=== PATIENT | female | born 1985 | race Caucasian/White ===

== ENCOUNTER 2019-04-16 21:32 | Emergency (ER) | payer OTHER, SELFPAY ==
--- NOTE | 2019-04-16 | DI.RAD.S_ITS ---
PROCEDURE: XR WRIST LT MIN 3V INDICATIONS: FALL TECHNIQUE: 3 views of the wrist were acquired. COMPARISON: None. FINDINGS: Bones: There is a comminuted distal left radial fracture with fracture line lucency extending to the articular surface of the radiocarpal joint. There is dorsal angulation of the distal fracture fragments. Visualized portions of the ulna appear intact. No suspicious bony lesions. Scaphoid view: Scapholunate interval is maintained. Soft tissues: No suspicious soft tissue calcifications. Soft tissue swelling of the left breast. IMPRESSION: Comminuted, displaced distal left radial fracture with likely intra-articular extension. Dictated by: Justin Coombs M.D. on 04/17/2019 at 9:05 Approved by: Justin Coombs M.D. on 04/17/2019 at 9:07
[2019-04-16 21:33] VITALS: BP 121/77; PULSE 73; RESP 15; TEMP 37.3; O2SAT 97; BMI 25.8
--- NOTE | 2019-04-16 21:44 | DI.RAD.S_ITS ---
PROCEDURE: XR FOREARM RT 2V INDICATIONS: left forearm/wrist injury TECHNIQUE: 2 views of the forearm were acquired. COMPARISON: None. FINDINGS: Bones: Comminuted, displaced distal left radial fracture with intra-articular extension. There is overlying soft tissue edema. No definite fracture noted in the ulna. No suspicious bony lesions. Soft tissues: No suspicious soft tissue calcifications or masses. IMPRESSION: Comminuted intra-articular distal left radial fracture. Dictated by: Justin Coombs M.D. on 04/17/2019 at 9:03 Approved by: Justin Coombs M.D. on 04/17/2019 at 9:05
[2019-04-17] VITALS (8 sets, daily range): BP systolic 110–128; BP diastolic 65–79; PULSE 65–78; RESP 14–22; O2SAT 94–100
--- NOTE | 2019-04-17 | DI.RAD.S_ITS ---
PROCEDURE: XR WRIST LT 2V INDICATIONS: POST REDUCTION TECHNIQUE: 2 views of the wrist were acquired. COMPARISON: Radiographs from earlier same day. FINDINGS: Bones: Status post interval casting of comminuted distal radial fracture in improved alignment. No suspicious bony lesions. Soft tissues: No suspicious soft tissue calcifications. IMPRESSION: Status post interval closed reduction of known comminuted distal left radial fracture in improved alignment. Dictated by: Justin Coombs M.D. on 04/17/2019 at 9:07 Approved by: Justin Coombs M.D. on 04/17/2019 at 9:09
[2019-04-17] MEDS: PROPOFOL 200 MG/20 ML VIAL 180 MG IV (01:37)
--- NOTE | 2019-04-17 01:42 | ED_ITS ---
HPI - Extremity Injury (Upper) General Chief Complaint: Extremity Injury, Upper Stated Complaint: GLF,Xray on [place],Dx with Fracture. Time Seen by Provider: 04/16/19 22:31 Source: patient Mode of arrival: ambulatory Limitations: no limitations History of Present Illness HPI narrative: The patient is in [place], she and her run or [place] vacationing. She slipped any stream about 5:00 p.m., falling on her outstretched left hand. She was seen locally diagnosed with a left wrist fracture. She arrives in a sling. She denies head, neck, or back pain. She has no extremity or torso injury other than the left wrist. The left shoulder and elbow are nontender. She has normal range of motion of the left fingers. She is right-hand dominant. She has no chronic medical history, she has no history of surgeries. She has no history of airway or respiratory issues. Related Data Previous Rx's Medication Instructions Recorded tramadol 50 mg PO Q6H PRN #20 tab 04/17/19 Allergies Allergy/AdvReac Type Severity Reaction Status Date / Time No Known Drug Allergies Allergy Verified 04/16/19 21:33 Review of Systems Review of Systems ROS Unobtainable: All systems reviewed & are unremarkable except as noted in HPI and below Constitutional Denies lethargy, Denies weakness and Reports other (No recent illness) ENT Comments: No difficulty swallowing or breathing Cardiovascular Denies chest pain, Denies lightheadedness, Denies palpitations, Denies dyspnea and Denies orthopnea Respiratory Denies cough, Denies dyspnea and Denies wheezing Gastrointestinal Gastrointestinal: Denies abdominal pain, Denies diarrhea, Denies nausea and Denies vomiting Genitourinary Comments: Not Musculoskeletal Denies back pain, Denies numbness and Denies tingling Neurologic Denies numbness, Denies tingling and Denies weakness Endocrine Denies palpitations Allergic/Immunologic Denies wheezing [facility] Medical History (Updated 04/17/19 @ 02:00 by Rhett Flor MD) No acute medical problems (Acute) Surgical History (Updated 04/17/19 @ 01:44 by Rhett Flor MD) No pertinent past surgical history (Acute) Social History (Updated 04/17/19 @ 01:45 by Rhett Flor MD) Smoking Status: Never smoker substance use type: marijuana Social History (Updated 04/17/19 @ 01:45 by Rhett Flor MD) Smoking Status: Never smoker substance use type: marijuana Exam Initial Vital Signs Initial Vital Signs: Vital Signs Temperature 99.2 F 04/16/19 21:33 Pulse Rate 73 04/16/19 21:33 Respiratory Rate 15 04/16/19 21:33 Blood Pressure 121/77 04/16/19 21:33 Pulse Oximetry 97 04/16/19 21:33 Const General: cooperative and well developed Nutritional Appearance: well nourished Orientation: alert, awake and oriented x3 HENMT Mouth: oral mucosae normal Teeth and gingiva: dentition normal Throat: posterior oropharynx normal Eyes Pupils: PERRL EOM: EOM intact bilaterally Neck Neck: trachea midline and No lymphadenopathy Resp Effort & Inspection: normal respiratory effort and able to speak in complete sentences Auscultation: clear to auscultation bilaterally, no rales, no rhonchi and no wheezes Cardio Rate: regular rate Rhythm: regular rhythm Heart Sounds: no click, no gallops, no murmurs and no rubs Pulses: normal peripheral pulses Skin General: no rashes or lesions noted and No petechiae Neuro General: alert, oriented x3, gait normal and no focal motor deficits Speech: speech normal Other: Left arm has normal motor and sensory findings. Extrem Other: Left shoulder and elbow nontender. Left wrist shows a dorsal deformity to the distal radial bone. She has no tenderness in the left hand. She has normal range of motion in all fingers of the left hand. The radial pulse is normal. Left hand motor exam is normal. Left hand light touch is normal. Procedures Orthopedic Fracture Reduction Fracture #1: Time Out Performed: Yes Side: left Fracture Reduction Location: radius Technique: direct manipulation and traction/counter-traction Post Reduction X-rays Demonstrate: acceptable reduction Post-reduction neuro exam: intact Post-reduction vascular exam: intact Splint Applied: Yes Patient Tolerated Procedure: Well Additional Comments: The patient was placed in a left sugar-tong splint by myself and with the assistance of her nurses. The splint was formed from [employer]. The left hand is neurovascularly intact after the splint was formed. Orthopedic Splinting/Casting Injury #1: Side: left Upper Extremity Injury Location: wrist Upper Extremity Immobilizer: sling/shoulder immobilizer and sugar tong splint Post splinting neuro exam: intact Post splinting vascular exam: intact Placed by: Provider Additional Comments: Left hand is neurovascularly intact after the splint was placed. Procedural Sedation Patient Age: Patient is 5yrs or older Consent signed: Yes Time out performed: Yes Indication: fracture/dislocation reduction ASA Class: I Mallampati Airway Classification: Class I Time of Last PO Intake: 12:01 Preparation: monitor and storage bin tender applied, pulse oximeter, capnometry used, suction/airway equipment at bedside and IV secured IV Propofol dose (mg): 160 ED Sedation Level: Moderate (Concious) Patient Tolerated Procedure: Well Complications: none Course Orders Ordered: ED Orders 04/16/19 21:44 XR forearm LT 2V Stat 04/17/19 XR wrist LT 2V Stat Discontinued Medications Propofol (Diprivan) 180 mg IV NOW ONE Stop: 04/17/19 01:37 Last Admin: 04/17/19 01:37 Dose: 180 mg Tramadol HCl (Ultram 50mg Prepack) 1 bottle MISC SEEINSTR ONE Stop: 04/17/19 01:56 Vital Signs - 8 hr 04/16/19 21:33 04/17/19 00:50 04/17/19 01:00 Temperature 99.2 F Pulse Rate 73 78 72 Respiratory Rate 15 15 14 Blood Pressure 121/77 Blood Pressure [Right Arm] 117/74 128/72 Pulse Oximetry 97 100 94 04/17/19 01:05 04/17/19 01:10 04/17/19 01:15 Temperature Pulse Rate 70 67 72 Respiratory Rate 18 15 16 Blood Pressure Blood Pressure [Right Arm] 110/69 126/70 120/71 Pulse Oximetry 99 100 99 04/17/19 01:20 04/17/19 01:25 04/17/19 01:30 Temperature Pulse Rate 65 65 65 Respiratory Rate 16 16 22 Blood Pressure Blood Pressure [Right Arm] 113/65 119/77 117/79 Pulse Oximetry 100 100 100 MDM - Extremity Injury (Upper) Imaging Data Left wrist x-ray: My impression: Left distal radial fracture with dorsal angulation and displacement. Post reduction x-ray confirms partial reduction, but not to anatomical placement. Discharge Plan Departure Patient Disposition: Home Clinical Impression: Closed fracture of distal end of left radius Qualifiers: Encounter type: initial encounter Fracture morphology: other fracture Qualified Code(s): S52.592A - Other fractures of lower end of left radius, initial encounter for closed fracture Instructions: Wrist Fracture Activity Restrictions/Additional Instructions: Ibuprofen every 6 hours as needed for pain. Tramadol every 6 hours as needed for added pain control. Keep the left arm in a splint until evaluated by an orthopedic surgeon. Call your primary care doctor tomorrow to arrange an orthopedic appointment. Return to the ER as needed. Prescriptions: New tramadol 50 mg tablet 50 mg PO Q6H PRN (Reason: pain) Qty: 20 RF: 0
[2019-04-17] MEDS: TRAMADOL 50 MG PREPACK 1 BOTTLE MISC (02:06)
== END 2019-04-17 02:00 | disposition home or self-care (01) ==
PROVIDERS: Emergency Provider Emergency Medicine
DX: S52.502A Unspecified fracture of the lower end of left radius, initial encounter for closed fracture (principal); W19.XXXA Unspecified fall, initial encounter
CPT/HCPCS: 25605; 29125; 73090; 73100; 73110; 94770; 99152; 99153; 99283; 99291; J2704